=== PATIENT | female | born 1945 | race Caucasian/White ===

== ENCOUNTER 2018-05-01 14:53 | Inpatient (IN) | payer MEDICARE, BC, OTHER ==
[~2018-05-01] VITALS: Ht 162.6 cm; Wt 101.2 kg
--- NOTE | 2018-05-01 16:32 | NUR ---
Pt arrived via transport service in . O2 @ 2L/NC as per home rate. Pt states her can bringer her walker in. Has dry cough "from breathing treatments." Verified DNR status. Pt gets her meds thru [facility] or [facility] in .
--- NOTE | 2018-05-01 17:29 | NUR ---
Provided snack of PB and myrna.
[2018-05-01] MEDS ORDERED: IPRATROPIUM BROM3 M1 IH (17:53)
[2018-05-01] MEDS ORDERED: LEVEMIR FLEX100 U/ML SQ ×2 (17:54)
[2018-05-01] MEDS ORDERED: MELATONIN5 M1 PO (17:55)
[2018-05-01] MEDS ORDERED: ROXICODONE 55 MG/TAB PO (17:56)
[2018-05-01] MEDS ORDERED: SENOKOT S 50 MG1 TAB PO (18:01)
[2018-05-01] MEDS ORDERED: LIPITOR 40MG TA40 MG PO (18:02)
[2018-05-01] MEDS ORDERED: ASPIRIN E.C. 8181 MG PO (18:02)
[2018-05-01] MEDS ORDERED: PROAIR HFA0.09 MG/AC IH (18:02)
[2018-05-01] MEDS ORDERED: CARDIZEM CD 18180 MG PO (18:03)
[2018-05-01] MEDS ORDERED: OS-CAL 500 + D1 TAB PO (18:03)
[2018-05-01] MEDS ORDERED: COREG12.5 MG PO (18:03)
[2018-05-01] MEDS ORDERED: ZYRTEC5 MG PO (18:04)
[2018-05-01] MEDS ORDERED: CELEXA 20MG20 MG/TAB PO (18:04)
[2018-05-01] MEDS ORDERED: SYNTHROID0.05 MG/TA PO (18:05)
[2018-05-01] MEDS ORDERED: TRICOR 48MG48 MG PO (18:05)
[2018-05-01] MEDS ORDERED: SINGULAIR 110 MG/TAB PO (18:05)
[2018-05-01] MEDS ORDERED: PRILOSEC 20MG20 MG PO (18:06)
[2018-05-01] MEDS ORDERED: NOVOLOG FLEX100 U/ML SQ (18:06)
[2018-05-01] MEDS ORDERED: MIRAPEX 0.0.125 MG/T PO (18:07)
[2018-05-01] MEDS ORDERED: THEO-24 30300 MG/CAP PO (18:15)
[2018-05-01] MEDS ORDERED: DESYREL 50MG50 MG PO (18:15)
[2018-05-01 18:32] VITALS: BP 119/46; PULSE 92; TEMP 97.6
--- NOTE | 2018-05-01 20:55 | NUR ---
Bruised right buttock. TLSO collar/brace in place, pt to bed with alarm on, call light and bed control remote in reach. Report to Marleen
--- NOTE | 2018-05-01 21:00 | NUR ---
Patient resting in recliner. Given tylenol for pain. Assessment completed, evening medicaitons administered.
--- NOTE | 2018-05-01 22:30 | NUR ---
Patient ambulated to restroom with 1 assist and walker. Now returning to go to bed. Now resting in bed.
--- NOTE | 2018-05-02 02:38 | NUR ---
Patient requesting help to restroom. Ambulated with one assist and walker. Returned to bed. Asking for tylenol for some neck pain. given. No further needs at this time.
[2018-05-02 04:28] VITALS: BP 166/87; PULSE 71; TEMP 97.6
--- NOTE | 2018-05-02 10:45 | NUR ---
Initial visit; Patient thanked Yam Curer for looking in on her and offering God's blessings and to keep her in Yam Curer's prayers.
--- NOTE | 2018-05-02 12:24 | NUR ---
Patient resting in recliner at this time eating her lunch. Patient was seen by Dr. Jerome this afternoon see new med orders. Decreased Scheduled insulins. Blood sugar this afternoon was low, patient given milk, genesis crackers and [place] juice with good effect. Current blood sugar is in the 80's. Will continue to monitor.
--- NOTE | 2018-05-02 12:58 | NUR ---
SIDNEY met with the patient to complete initial intake. The patient lives in [place] with her , Jessee. She reports independence with ADLs prior to IPR and has a walker and canes. The patient's PCP is Dr. Quiles and she receives her medications on [place] or at the [facility] in [place]. She reports no difficulties obtaining her meds. The patient does not have advanced directives, but she was interested in obtaining the form for DPOA-HC. SIDNEY provided. SW to continue to follow to ensure a safe discharge.
--- NOTE | 2018-05-02 13:45 | NUR ---
Patient has bilateral bruising to forehead, eyes, right cheek, bilateral knees, and bilateral arms from prior fall. Patient currently wearing her TOPOLOGY TEACHER at all times per orders from Neurosurgery at [facility]. Patient reporting pain 5-7/10 this morning and given prn pain meds with some effect. Will continue to monitor. She is on 2 L oxygen at all times and reports that she is on that at home as well.
[2018-05-02 18:28] VITALS: BP 192/107; PULSE 81; TEMP 97.4
--- NOTE | 2018-05-02 19:00 | NUR ---
Patient on 8 lb weight restricions to bilateral arms. She was taken off the mechanical soft diet per ST today and tolerating diet well. Attended all therapies today. Reported off to night nurse.
[2018-05-02 20:30] VITALS: BP 107/77; PULSE 93
--- NOTE | 2018-05-03 01:08 | NUR ---
THE PT WAS UP TO THE BR FOR A MED SF BROWN BM, DID OWN HYGIENE, CGA TO THE BED, DOES WELL GETTING OWN LEGS UP INTO THE BED, USES HER BRACING AT ALL TIMES, C\O THE ROOM BEING TOO WARM, THEN TOO COOL, TEMP ADJUSTED. B\P WAS ELEVATED EARLIER BUT THEN WAS 104/77 AT RECHECK. TAKEN IN RIGHT LEG, POSSIBLY ELEVATED EARLIER WHEN SHE HAD JUST BEEN UP AND IN PAIN. WILL MONITOR. SHE HAD AN ACCUCHECK OF 103, TOOK AN HS SNACK. CALLS NEEDED. C\O HER CHIN PAD BEING SCRATCHY, SKIN TENDER. THIS NURSE DOESN'T HAVE MOHAIR OR LAMBS WOOL TO REPLACE IT. WILL PASS THIS ON TO THERAPIST TOMORROW FOR A SOLUTION. APPEARS TO GET ADEQUATE SLEEP.
[2018-05-03 06:30] VITALS: BP 158/65; PULSE 83; TEMP 97.7
--- NOTE | 2018-05-03 08:30 | NUR ---
PT NOT IN ROOM.
--- NOTE | 2018-05-03 11:30 | NUR ---
BS TAKEN AND FOUND TO BE 58. SNACK OF MILK AND YOLANDA CRACKERS GIVEN. LUNCH TRAY GIVEN BY KITCHEN STAFF. WILL RECHECK BS AT 1400.
--- NOTE | 2018-05-03 12:44 | NUR ---
PT HAD AN EPISODE OF GERD. UP TO BR
--- NOTE | 2018-05-03 12:48 | NUR ---
PT DID NOT EAT ALL HER LUNCH. SHE ATE ABOUT 20%. THEN STATES SHE WILL NOT EAT ANYMORE.
--- NOTE | 2018-05-03 12:55 | NUR ---
COUGHING UP GREENISH/BROWNISH PHLEM, TIWCE TODAY.
--- NOTE | 2018-05-03 13:11 | NUR ---
TL PICC LINE FLUSHED WITH 10 CC NS. WHITE LINE IS SLUGGISH AND NO BLOOD RETURN. WHITE AND PURPLE FLUSHE BETTER AND HAVE GOOD BLOOD RETURN.
--- NOTE | 2018-05-03 15:10 | NUR ---
pt requested tylenol 650 mg for headache/given. bs recheck at 1400 was 168, no insulin given.
[2018-05-03 16:00] VITALS: BP 147/72; PULSE 84; TEMP 97.8
--- NOTE | 2018-05-03 18:18 | NUR ---
PT REPORTS THAT SHE STILL HAS THE HEADACHE. GIVEN EDWIN 5 MG FOR THE HEADACHE. VSS. NO LOC, NO CHANGE IN MENTATION, PUPILS ARE EQUAL AND RECTIVE TO LIGHT. HAS HAD A STRONG COUGH MOST OF THE DAY. RIGHT NOW THE COUGH IS BETTER AND COMES LESS OFTEN.
--- NOTE | 2018-05-04 01:47 | NUR ---
THE PT WAS BEDRESTING WITH TV ON THE SHIFT BEGAN, SHE CALLED FOR ASSISTANCE TO GO TO THE BR AND VOID, THEN WANTED TO SIT UP IN THE RECLINER FOR A WHILE VERBALIZED OF NAGGING HEAD AND SHOULDERS ACHE, NOT DUE FOR MEDS, ICE PACK IN USE. SHE STATED THAT SHE FELT PUSHED TOO HARD TODAY AND THAT SHE VERBALIZED THAT IT WAS TOO MUCH FOR HER. EMOTIONAL SUPPORT GIVEN. SHE CALLED FOR BATHROOM AND TO BED CALLED FOR PAIN MEDS, GIVEN, PAIN IS AT AN 8\10. SHE SETTLED FOR A WHILE, RESTED WITH EYES CLOSED, RESP EVEN. PT IS UP NOW, IN THE BR WITH DONA OCAMPO TO SUPERVISE. CUES TO NOT BOYLE, SAFETY.
[2018-05-04 03:45] VITALS: BP 147/65; PULSE 75; TEMP 98.1
--- NOTE | 2018-05-04 06:32 | NUR ---
THE PT WAS ASSISTED TO THE BR TO VOID, REQUESTED TO THE RECLINER, TOOK HER MEDS, HEPARIN SQ TO ABD LOTS OF ECCYMOSIS.
--- NOTE | 2018-05-04 06:35 | NUR ---
THE PT STATED THAT THE HER MEDS FINALLY COUGHT UP WITH HER AND HER HEADACHE IS RELIEVED. THAT WAS AT ABOUT 0430.
--- NOTE | 2018-05-04 10:00 | NUR ---
Patient resting in recliner at this time. Call light in reach, bed alarm on. Pain increased to 5/10 at this time given prn pain meds. Will continue to monitor.
--- NOTE | 2018-05-04 11:00 | NUR ---
Patient was given a bed bath today and her bruises are continuing to heal. Applied lotion to her body and she was given fresh clothes. She had a shampoo cap applied and hair scrubbed, combed and blown dry. Patient tolerated well. She has multiple bruises to her stomach from the Heprin injections receiving TID. Will continue to monitor.
[2018-05-04 17:06] VITALS: BP 140/56; PULSE 86; TEMP 97.3
--- NOTE | 2018-05-04 18:58 | NUR ---
Patient currently resting in recliner, call light in reach and chair alarm on. Pain 5/10 at this time was given prn pain med. Will continue to monitor. Gave report to
--- NOTE | 2018-05-05 01:34 | NUR ---
THE PT WAS SITTING UP IN HER RECLINER THE SHIFT BEGAN, WATCHES TV AND PLAYS SOLITAIRE ON HER TABLET. SHE CALLED FOR ASISSTANCE TO GO AND SIT ON HER BED TO USE HER COMPUTER, SHE IS UP WITH SBA. STEADY GAIT, GOOD ATTENTION TO SAFETY AND SURROUNDINGS. VERBALIZED OF THE DAYS EVENTS. WHEN READY FOR HS, CALLED FOR ASSISTANCE TO THE BR AND BACK TO BED, POSITIONED FOR COMFORT. TOOK TYLENOL WITH ROXICODONE. HAD AN ACCUCHECK OF 136 FROM EARLIER, DIDN'T WANT A NEW ONE DONE. SHE REFUSED HER SCD'S STATING THAT THEY MAKE HER TOO HOT, TEACHING THAT SHE SHOULD DO ANKLE PUMPS EVERYTIME SHE WAKES IF SHE ISN'T GOING TO WEAR THEM.
--- NOTE | 2018-05-05 04:28 | NUR ---
THE PT IS BEDRESTING WITH EYES CLOSED, RESP EVEN. APPEARS TO GET ADEQUATE SLEEP.
[2018-05-05 05:11] VITALS: BP 157/75; PULSE 100; TEMP 97.8
--- NOTE | 2018-05-05 10:05 | NUR ---
Report from SONY Hansen. Pt has TLSO cervical brace and glasses in place, O2@2L/NC, c/o sore chest/midsternal from coughing all night. PRN pain meds given, notified AIV services of PICC. Hot tea given for coughing, applied tia wrap around. Pt amb w/ FWW, SBA, steady.
--- NOTE | 2018-05-05 11:30 | NUR ---
Patient admitted with PICC to inpatient rehabilitation. triple-lumen, bio flow PICC present right upper arm. with sterile technique right upper arm PICC dressing change done with insertion site cleansed with ChloraPrep 1, chlorhexidine impregnated disc applied, skin prep, StatLock, and Tegaderm applied. No signs or symptoms of IV complications noted. No concerns voiced. patient reports PICC was placed at [facility] in [facility].wrapped with Jason to protect catheter.
[2018-05-05 17:28] VITALS: BP 161/82; PULSE 73; TEMP 97.4
--- NOTE | 2018-05-05 21:26 | NUR ---
Pt mike mod I w/ FWW for bathroom privileges. Report to SONY Hansen. Gracie with tylenol given for pain
--- NOTE | 2018-05-06 04:01 | NUR ---
THE PT WAS UP IN HER RECLINER WITH TV ON THE SHIFT BEGAN. ENJOYS HER TABLET.CALLED FOR ASSISTANCE TO BEDAS SHE ONLY HAS BRP. SITS UP ON THE RIGHT SIDE OF THE BED, WORKS ON HER COMPUTER. HER HS ACCUCHECK WAS 161. HER S\\S COVERAGE WAS CHANGED TODAY TO LOW S\\S, NO COVERAGE REQUIRED. SHE REFUSES HER SCD'S, "TOO HOT", BUT SHE STATED HTAT SHE DOES HER ANKLE PUMPS WHEN SHE WAKES. RATED HER PAIN FROM 5-7 GIVEN MARK AND TYLENOL AT 2246 WITH GOOD EFFECT. APPEARS TO GET ADEQUATE SLEEP. UP TO THE BR WITH BRP, WITH HER WALKER AND HER TLSO ON AT ALL TIMES, NO PROBLEMS, STEADY GAIT, GOOD ATTENTION TO SAFETY AND SURROUNDINGS.
[2018-05-06 04:18] VITALS: BP 151/67; PULSE 87; TEMP 97.5
--- NOTE | 2018-05-06 07:31 | NUR ---
Patient resting in bed at this time, call light in reach and independent in her room. Patient reporting that she is not hungry after taking all her pills so refused the rest of her breakfast. She said that she has other foods that she can snack on this morning. Will continue to monitor.
--- NOTE | 2018-05-06 08:39 | NUR ---
Jessika was contacted this morning by SONY Hansen about PICC line difficulties. Red port is sluggish, purple port working well and white port unable to get blood return and is very difficult to flush. Jessika just met with this nurse and was updated on the above. She will be seeing patient later today. Will continue to monitor.
--- NOTE | 2018-05-06 08:40 | NUR ---
PICC intact right upper arm with sterile dressing change done with insertion site had been kinked at site. insertion site cleansed with chloraprep x 1, chlorhexidine impregnated disk applied. skin prep, stat lock, and tegaderm applied. ports flushed with 10ml normal saline with good blood return noted. no signs or symptoms of IV complications noted. no concerns voiced.
--- NOTE | 2018-05-06 10:58 | NUR ---
Patient reports not feeling well. Blood sugar taken was 177, patient requested a snack - given milk and genesis crackers. She is still currently working with therapy downstairs at this time. Will continue to monitor.
[2018-05-06 17:46] VITALS: BP 162/100; PULSE 97; TEMP 98.6
--- NOTE | 2018-05-06 18:30 | NUR ---
Patient was seen by Jessika and today and one of the ports was pinched off. She corrected this and now all three ports are working properly. Patient was wanting to know if she should have some labs drawn to check on her values and wanted to know if she could have physician observe her abdomen due to TID heprin injections. This will be communicated to Dr. Reyes tomorrow. Patient reported coughing a lot today and this causing her some chest discomfort. Given prn pain meds with some effect. Gave report to oncoming nurse.
--- NOTE | 2018-05-06 19:20 | NUR ---
Entered room during hand off with day shift nurse. Pt distressed. States she is "hot". Asks to make sure her oxygen is on. Respirations labored. Pt is tachycardiac and c/o intermittent nausea and pain 8/10 when coughing d/t brace crushign into abdomen. Spo2 93% on O2 @ 2L. Blood glucose is elevated. Dayshift nurse held insulin d/t pt hx of low blood sugars. Insulin will be administered.
--- NOTE | 2018-05-06 20:15 | NUR ---
Patient sitting at side of bed playing a computer game. Reports pain, nausea and SOB have resolved. No distress noted.
--- NOTE | 2018-05-07 04:05 | NUR ---
Pt up to bathroom. No needs noted. Pt denies pain.
[2018-05-07 06:15] VITALS: BP 138/76; PULSE 95; TEMP 97.2
[2018-05-07 16:19] VITALS: BP 154/62; PULSE 76; TEMP 97.4
--- NOTE | 2018-05-08 06:11 | NUR ---
Pt slept well during the night, no complaints, VS have remained stable.
[2018-05-08 06:41] LABS: MEAN CELL VOLUME 91 fl (80.0-100.0); MEAN CORPUSCULAR HGB CONC 31 g/dl (33.0-37.0); MEAN PLATELET VOLUME 9.4 fl (7.4-10.4); PLATELET COUNT 471 K/mm3 (130-400); RED BLOOD COUNT 3.43 M/mm3 (4.10-5.30); REDCELL DISTRIBUTION WIDTH-CV 17.2 % (11.5-14.5)
[2018-05-08 06:45] LABS: HEMATOCRIT 31.2 % (37.0-47.0); HEMOGLOBIN 9.8 g/dl (12.5-16.0); MEAN CORPUSCULAR HEMOGLOBIN 29 pg (27.0-31.0)
[2018-05-08 06:48] LABS: CALCIUM 8.7 mg/dL (8.4-10.2); CREATININE, serum 1.08 mg/dL (0.52-1.25)
[2018-05-08 07:12] LABS: ANISOCYTOSIS 1+; BAND 19 % (0-10); BASOPHIL 1 % (0-2); EOSINOPHIL 2 % (0-4); LYMPHOCYTE 21 % (20.0-51.0); NEUTROPHILS 50 % (42.0-75.2); PLATELET ESTIMATE INCREASED (NORMAL)
[2018-05-08 07:44] VITALS: BP 174/95; PULSE 100; TEMP 97.5
--- NOTE | 2018-05-08 11:26 | NUR ---
Report from SONY Berry. Pt mike Mod I in rm w/ FWW for BR privilages, TLSO cervical brace in place, O2/NC, gripper socks.
--- NOTE | 2018-05-08 11:33 | NUR ---
Faxed prescription for Doyle Collar part to [facility], received "OK" fax receipt. Copy to chart.
[2018-05-08 15:39] VITALS: BP 145/68; PULSE 81; TEMP 97.9
--- NOTE | 2018-05-08 16:06 | NUR ---
SIDNEY met with the patient and patient's to discuss IPR Team Conference Note and to review the teams recommendation of home health with PT/OT for a tentative discharge date for 05/13. The patient was in agreeance to this plan. SIDNEY to provide the patient with a list of home health agencies that serve [place]. The patient was also interested in agencies that provide housekeeping and a chair lift. SW to provide that information. SIDNEY then discussed OT's recommendation of the patient's coming in on Saturday, 05/12 for some education and training. The patient's reports that he is in agreeance to this plan and can be up to the hospital at 1300. SIDNEY to inform IPR Director and continue to follow.
--- NOTE | 2018-05-08 17:38 | NUR ---
Pt to chair for supper, visiting. TLSO brace in place, [facility] brought new c-collar pads, will need to use precautions with pt in bed to remove brace before changing pads. Old pads to be hand washed and dried and saved for future use.
--- NOTE | 2018-05-08 22:00 | NUR ---
PT SITTING UP IN RECLINER PLAYING GAME ON TABLET. ASPEN COLLAR W/ TSLO INTACT. SEE MAR FOR PAIN MEDS GIVEN. FULL MOVEMENT TO BUE/BLE. PLACED ERIC PADDING ON ASPEN COLLAR. WASHED OUT OLD PADS AND PLACED IN BR TO DRY. WASHED NECK AND FACE. PT RELATES COUGH USUALLY STARTS AFTER GETTING INTO BED. ROBITUSSIN GIVEN. MOD I TO BR AND BACK. ENC PT TO CALL NURSE WHEN GETTING UP QT NIGHT D/T NARCOTIC MEDS GIVEN. PT AGREED. CALL LIGHT IN REACH.
[2018-05-09 04:37] VITALS: BP 168/73; PULSE 95; TEMP 97.5
--- NOTE | 2018-05-09 09:00 | NUR ---
PICC intact right upper arm. Concern for dressing would not be intact by Saturday. With sterile technique right upper arm PICC dressing change done with insertion site cleansed with ChloraPrep 1, impregnated chlorhexidine disc applied, skin prep, StatLock, and Tegaderm applied. Tegaderm applied on top of dressing. Besides or symptoms of IV complications noted. No concerns voiced. Flushed all 3 ports with 10 mL normal saline with good blood return noted. 2 ports are sluggish. We will continue to monitor.
--- NOTE | 2018-05-09 11:07 | NUR ---
Report from SONY Salinas. Pt mike mod I w/ fww for BRP. TLSO brace and O2 in place. Obtained new NC per pt's request. Pt had gown under brace, attempted to don sweatshirt over this and asked for assistance after pt got arms in, helped get over head and pt had lots of pain, decided to take off sweatshirt as it was too tight, needed more assist to remove. Pt manages own O2 tubing. Took pills with thin liqs.
--- NOTE | 2018-05-09 14:25 | NUR ---
Pt made mod I in rm w/ fww
[2018-05-09 16:32] VITALS: BP 144/70; PULSE 88; TEMP 97.4
--- NOTE | 2018-05-09 17:55 | NUR ---
Pt to chair, visiting and voiced his concerns of pt going home, asked him to elaborate, and enc solutions. Denied further questions. Enc to write down other questions and bring Saturday with therapy training.
--- NOTE | 2018-05-09 19:01 | NUR ---
Notified Mayte, Mechanical Engineer at 1739 to request PICC line removal, aware. Later, Mayte asked when PICC was inserted (April 24, 2018) and length (48 cm) per report from [facility]. Reported to SONY Salinas that Mayte asked to be notified when pt is in bed for PICC removal.
--- NOTE | 2018-05-09 20:00 | NUR ---
PT PLACED IN SUPINE POSITION FOR RUE PICC LINE REMOVAL PER STERILE TECHNIQUE. SKIN VERY IRRITATED FROM ADHESIVE. PT TOLERATED WELL.
--- NOTE | 2018-05-09 20:00 | NUR ---
SEE NOTE RE PICC LINE REMOVAL. NO BLEEDING FROM SITE. DRSG CDI. C COLLAR WITH TSLO IN PLACE. PT MOD I IN ROOM W/WALKER. STEADY GAIT WITH SPINAL PRECAUTIONS FOLLOWED. DENIES NUMBNESS OR TINGLING IN EXTREMITIES. CALL LIGHT IN REACH.
[2018-05-10 04:30] VITALS: BP 135/54; PULSE 92; TEMP 98.5
--- NOTE | 2018-05-10 09:00 | NUR ---
PT IN BED AT PRESENT. REQUESTS ASSIST TO GET OUT OF BED TO VOID. SMALL AMOUNT OF ASSIST GIVEN, MORE INSTRUCTION TO TURN TO HER SIDE AND PULL HERSELF UP TO SITTING. AMBULATES TO BR AND VOIDS. PT EV TO CLEAN HERSELF. PT AMBULATES OUT OF BR TO CLOSET AND GETS HER CLOTHES READY FOR THE DAY. PT IS ABLE TO PUT HER UNDERWARE AND PANTS ON WITH SMALL AMOUNT OF DIFFICULTY WHICH SHE IS ABLE TO FIGURE OUT FOR HERSELF. COUGHING IS VERY PAINFUL FOR THE PT ESPECIALLY AT THE CHEST AREA. PT TAKES AM MEDS EASILY, REQUESTS PAIN MEDS. CALL LIGHT AND ALARMS IN USE.
--- NOTE | 2018-05-10 15:34 | NUR ---
HERE READING THE PAPER. PT UP AMBULATING IN ROOM. BRACE IN PLACE. STATES PAIN IS 5/10, GIVEN EDWIN AND TYLENOL FOR PAIN.
[2018-05-10 16:42] VITALS: BP 137/55; PULSE 93; TEMP 97.3
--- NOTE | 2018-05-10 21:00 | NUR ---
PT SITTING UP IN RECLINER. O2 2L N/C NO RESP DISTRESS. FACIAL BRUISING IMPROVING. C-COLLAR W/TSLO IN PLACE. PT HAS MANY COMPLAINTS RANGING FROM TO STAFF TO FOOD. ALLOWED PT TO VOICE FRUSTRSATION. READJUSTED C CLOOAR FOR MORE SUPPORT.
[2018-05-11 04:15] VITALS: BP 168/78; PULSE 102; TEMP 98.2
--- NOTE | 2018-05-11 09:14 | NUR ---
Adjusted foam cushions under waist straps to TLSO while pt layed flat in bed. [place] Mod I in RM w/ Walker and O2 per NC, glasses in place, gripper socks on.
[2018-05-11 18:18] VITALS: BP 178/85; PULSE 90; TEMP 97.8
--- NOTE | 2018-05-11 20:29 | NUR ---
No acute changes, pt took ac with tylenol for pain x2 this shift. Provided warm bath wipes, pt used independently; provided shower cap, assisted around brace. Pt asked for assist with changing hospital gown underneath brace in 's presence. Pt mike mod I in rm w/ fww. Report to SONY Hansen.
--- NOTE | 2018-05-12 01:41 | NUR ---
THE PT WAS SITTING UP IN HER RECLINER INITIAL ROUNDS WERE MADE, SHE IS MODIFIED INDEPENDENT IN HER ROOM WITH HER TLSO ON. SHE DID HER OWN HS CARES, WENT TO THE BR, ACCUCHECK WAS 156, SHE WENT TO BED, NAPPED FOR ABOUT AN HOUR THEN UP TO THE RECLINER AGAIN. SHE HAD AN HS SNACK EARLIER BUT REQUESTED ANOTHER ABOUT 1 AM, GIVEN. SHE RATED HER PAIN AT A 5\\10, TOOK MARK AND TYLENOL AND PAIN WAS DOWN TO A 3. SHE C\\O THE TLSO, READJUSTED IT SEVERAL TIMES. STATED, " I CAN'T WAIT UNTIL I DON'T NEED THIS ANYMORE. THE PT IS SCHEDULED FOR A FU CT ON THE . SHE REMAINS UP IN HER RECLINER PLAYING GAMES ON HER TABLET.
--- NOTE | 2018-05-12 04:40 | NUR ---
BEDRESTING WITH EYES CLOSED, RESP EVEN. WAS WAKEFUL EARLIER AND PLAYED GAMES ON HER TABLET UNTILL READY FOR BED, C\O BRACE RISING UP INTO HER NECK, BETTER WITH SMALL ADJUSTMENT AND HOB LOWERED.
[2018-05-12 06:20] VITALS: BP 174/112; PULSE 77; TEMP 97.4
[2018-05-12 06:46] LABS: BASO # 0.1 (0.0-0.2); EOS # 0.5 (0.0-0.7); EOS % 5.4 % (0-4.0); GRAN # 5.5 (1.4-6.5); GRAN % 59.3 % (42.2-75.2); HEMOGLOBIN 10.9 g/dl (12.5-16.0); LYMPH # 1.9 (1.2-3.4); LYMPH % 20.4 % (20.0-51.0); MEAN CELL VOLUME 92 fl (80.0-100.0); MEAN CORPUSCULAR HEMOGLOBIN 29 pg (27.0-31.0); MEAN CORPUSCULAR HGB CONC 31 g/dl (33.0-37.0); MEAN PLATELET VOLUME 9.6 fl (7.4-10.4); MONO # 1.2 (0.1-0.6); MONO % 12.7 % (1.7-9.3); PLATELET COUNT 418 K/mm3 (130-400); RED BLOOD COUNT 3.83 M/mm3 (4.10-5.30); REDCELL DISTRIBUTION WIDTH-CV 17.7 % (11.5-14.5)
[2018-05-12 06:52] LABS: HEMATOCRIT 35.4 % (37.0-47.0)
[2018-05-12 07:08] LABS: CALCIUM 8.8 mg/dL (8.4-10.2); CREATININE, serum 1.12 mg/dL (0.52-1.25)
--- NOTE | 2018-05-12 07:10 | NUR ---
Report received from SONY Hansen. Pt sitting on bench resting, denies needs, will continue to monitor.
--- NOTE | 2018-05-12 10:48 | NUR ---
Assessment charted. PRN pain meds given earlier and pain is now at 3/10, pt tolerating well, sitting on bench playing computer soleVestment games. BLE +2 pitting edema from dependent position. Pt verbalized that TLSO brace has been adjusted by PT and is now much more comfortable. PICC site dressed with mepilex on R arm from skin tear. See assessment for all other skin issues. Will continue to monitor.
--- NOTE | 2018-05-12 11:55 | NUR ---
First visit from the knuckle bender. No needs right now.
[2018-05-12 15:09] VITALS: BP 130/64; PULSE 88; TEMP 97.5
--- NOTE | 2018-05-12 16:08 | NUR ---
SIDNEY met with patient to present IM and verbally discussed the contents. Patient was agreeable and signed the form. She reports she has all her medical equipment that is needed except a stair lift. SIDNEY informed her medicaid wont pay for that but she may be able to get assistance with the [facility]. SIDNEY provided list of home health agencies and she is going to research tonight and give her choice in the am. SIDNEY to follow.
--- NOTE | 2018-05-12 18:06 | NUR ---
Pt doing well. PRN pain meds provided over shift per request from patient. Pt up ambulating in room as needed, MOD I. Excoriation noted in pannus area todya, will pass onto next shift to address. Pt up to bench, chair, bed as needed. Denies current pain, will give bedside shift report to nightshift nurse who will resume care.
--- NOTE | 2018-05-13 01:49 | NUR ---
THE PT IS UP [facility], SITS UP IN THE RECLINER, PLAYS HER GAMES UNTIL ABOUT 2300. ACCUCHECK WAS 230, SCHEDULED AND S\S INSULIN GIVEN. SHE STATED THAT SHE IS TIRED OF PB &CRACKERS. SHE HAD A CHOCOLATE ICE CREAM FOR HS SNACK. SHE TOOK PAIN MEDS AT ABOUT 2200. SHE IS UP IN HER ROOM WITH GOOD ATTENTION TO SAFETY AND SURROUNDINGS.
[2018-05-13 06:37] VITALS: BP 165/87; PULSE 95; TEMP 98.1
--- NOTE | 2018-05-13 09:34 | NUR ---
Patient resting in bed at this time, call light in reach and independent in her room with a walker. Patient has a Cervical TLSO on at all times. PICC was removed on 05/09 and has a small skin tear wear the tegaderm/mepilex was removed. Mepilex is currently in place CDI. Patient reports that she was given new collar pads for her TLSO. She has requested staff to assist with adustment of brace this morning due to discomfort. Will continue to monitor. Patient reported that her stomach was not feeling well this morning. So only ate a small amount of her breakfast. She did eat peanut butter and crackers following that though. She takes her pills whole with water with no difficulties.
--- NOTE | 2018-05-13 10:02 | NUR ---
Call to SIDNEY Ren regarding patient wanting to use [facility]. She voiced understanding.
--- NOTE | 2018-05-13 10:05 | NUR ---
Patient chose [facility]. SIDNEY faxed referral and called to inform them. Will send DC once completed.
[2018-05-13] MEDS ORDERED: TYLENOL 325MG325 MG PO (11:30)
[2018-05-13] MEDS ORDERED: MUCINEX 60600 MG/TA1 PO (11:31)
[2018-05-13] MEDS ORDERED: ROBITUSSIN DM 105 ML PO (11:31)
[2018-05-13] MEDS ORDERED: FLONASE NASAL S16 GM NS (11:32)
[2018-05-13] MEDS ORDERED: ROXICODONE 55 MG/TAB PO (11:39)
--- NOTE | 2018-05-13 13:24 | NUR ---
Discharge orders faxed to [facility].
--- NOTE | 2018-05-13 13:37 | NUR ---
Upon discharge patient was wanting to know if she could take any lasix as she use to be on it prior to this fall. It had been dc'd when she was transferred from [place] to [facility]. This nurse left a message for Dr. Jerome to return her call regarding this. Awaiting a reply.
[2018-05-13] MEDS ORDERED: LASIX 20MG TABL20 MG PO (13:55)
--- NOTE | 2018-05-13 14:00 | NUR ---
See new orders to start Lasix 20 mg Q day [address] Jerome. Rx was printed for patient upon discharge.
--- NOTE | 2018-05-13 14:15 | NUR ---
Patient Health Summary, Discharge Summary, and Home Meds printed and reviewed with patient and spouse. Stressed importance of follow up appointments. Reviewed medications, provided printed prescription of Lasix and Roxicodone. Belongings gathered by HAILY/Trevor including cane, glasses, TLSO brace, Cell phone, tablet, chargers, suitcase and clothes. Patient transported via wheelchair by Nelli and seatbelted for ride home with . Patient and denied questions.
--- NOTE | 2018-05-13 15:27 | NUR ---
Have a call out to Patient and to Anne to clarify about the f/u MRI for patient upon discharge. Awaiting a return call.
--- NOTE | 2018-05-13 15:56 | NUR ---
Anne returned my call - she was not updated on the MRI/CT scheduling. Awaiting a return call from patient to find out any details.
--- NOTE | 2018-05-15 11:05 | NUR ---
Discharge FIM scores for 05/12/18 were reviewed by the team. Team judged the nursing score (6) for eating & grooming to be scored incorrectly as documentation for eating was only for ADA & grooming read "independent" & feels scores should be a 7 = independent. Team also discussed social interaction & due to some out bursts towards during family education/training it is felt score should be a 5 as she needed some verbal cues.--Simran Fernandez, PD
== END 2018-05-13 14:15 | disposition home health service (06) | DRG 950 ==
PROVIDERS: Family Medicine; Hospitalist; ADMIT Internal Medicine
DX: S06.5X9D Traumatic subdural hemorrhage with loss of consciousness of unspecified duration, subsequent encounter (principal); Z66 Do not resuscitate; W10.8XXD Fall (on) (from) other stairs and steps, subsequent encounter; S22.021 Stable burst fracture of second thoracic vertebra; S12.100D Unspecified displaced fracture of second cervical vertebra, subsequent encounter for fracture with routine healing; S12.200D Unspecified displaced fracture of third cervical vertebra, subsequent encounter for fracture with routine healing; I25.10 Atherosclerotic heart disease of native coronary artery without angina pectoris; I10 Essential (primary) hypertension; I48.0 Paroxysmal atrial fibrillation; E78.5 Hyperlipidemia, unspecified; E11.9 Type 2 diabetes mellitus without complications; J44.9 Chronic obstructive pulmonary disease, unspecified; E66.01 Morbid (severe) obesity due to excess calories; Z79.4 Long term (current) use of insulin; J01.90 Acute sinusitis, unspecified; Z68.37 Body mass index [BMI] 37.0-37.9, adult; F32.9 Major depressive disorder, single episode, unspecified; Z86.73 Personal history of transient ischemic attack (TIA), and cerebral infarction without residual deficits; Z87.891 Personal history of nicotine dependence; Z23 Encounter for immunization
CPT/HCPCS: 99222-AI; 99231-AI; 99232-AI; 99233-AI; 99239; J1644; J1650; J1815

== ENCOUNTER 2018-05-19 16:31 | Inpatient (IN) | payer MEDICARE, BC, OTHER ==
[2018-05-19] VITALS (194 sets, daily range): BP systolic 124; BP diastolic 78; PULSE 84; TEMP 97.4; O2SAT 81–100
[~2018-05-19] VITALS: Ht 162.6 cm; Wt 95.1 kg
[~2018-05-19 16:31] MED LIST: ASPIRIN E.C. 8181 MG PO; CARDIZEM CD 18180 MG PO; CELEXA 20MG20 MG/TAB PO; COREG12.5 MG PO; DESYREL 50MG50 MG PO; FLONASE NASAL S16 GM NS; IPRATROPIUM BROM3 M1 IH; LASIX 20MG TABL20 MG PO; LEVEMIR FLEX100 U/ML SQ; LIPITOR 40MG TA40 MG PO; MELATONIN5 M1 PO; MIRAPEX 0.0.125 MG/T PO; MUCINEX 60600 MG/TA1 PO; NOVOLOG FLEX100 U/ML SQ; OS-CAL 500 + D1 TAB PO; PRILOSEC 20MG20 MG PO; PROAIR HFA0.09 MG/AC IH; ROBITUSSIN DM 105 ML PO; ROXICODONE 55 MG/TAB PO; SENOKOT S 50 MG1 TAB PO; SINGULAIR 110 MG/TAB PO; SYNTHROID0.05 MG/TA PO; THEO-24 30300 MG/CAP PO; TRICOR 48MG48 MG PO; TYLENOL 325MG325 MG PO; ZYRTEC5 MG PO
--- NOTE | 2018-05-19 18:00 | NUR ---
Pt transfered from EMS cart to ICU bed. Pt wearing thoracic and cervical brace under gown. Gown placed under brace. at bedside. Pt AAOx3 with HR=80's in Atrial Flutter, all other VSS on baseline O2 of 2L per Nasal canula. Denies chest pain at this time. IV heparin and cardizem infusing upon arrival. Heparin paused for HepXA lab draw. Premixed cardizem gtt and tubing changed to cardizem pulled from ICU [facility] as the cardizem bag from [facility] was not labeled with concentration of drug.
--- NOTE | 2018-05-19 19:45 | NUR ---
REPORT RECEIVED FROM SONY HA.
[2018-05-19 19:48] LABS: PARTIAL THROMBOPLASTIN TIME 85.5 SECONDS (26.0-37.0)
--- NOTE | 2018-05-19 19:54 | NUR ---
Bedside report given to SONY Morocho. Mariah gtt dose and current heparin pause reviewed together. Pt sitting up on side of bed eating supper. No complaints at this time. Call light within reach.
--- NOTE | 2018-05-19 20:12 | NUR ---
CALLED NADER GARCIA TO CLARIFY ORDER FOR PT'S HEPARIN. PT ON LOW DOSE HEPARIN PROTOCOL.
--- NOTE | 2018-05-19 20:50 | NUR ---
PT'S HEP XA AT 0.84, THIS RN CALLED HOSPITALIST NADER GARCIA TO CLARIFY OF WHAT RATE WILL WE START PT ON, ORDERS RECEIVED TO RE-DRAW HEP XA AT 2200. HEPARIN DRIP CURRENTLY OFF AT THIS TIME.
--- NOTE | 2018-05-19 21:50 | NUR ---
RECEIVED A CALL FROM NADER GARCIA. PT'S HEPARIN DISCONTINUED PT HAD PREVIOUS SUBDURAL HEMATOMA A MONTH AGO. HEP XA AT 2200 CANCELLED.
[2018-05-19 23:27] LABS: ALBUMIN 4.1 gm/dL (3.5-5.0); BILIRUBIN,TOTAL 0.8 mg/dL (0.0-1.0); CALCIUM 9.5 mg/dL (8.4-10.2); CREATININE, serum 1.03 mg/dL (0.52-1.25); MAGNESIUM 1.2 mg/dL (1.6-2.3); POTASSIUM 3.3 mmol/L (3.4-5.0); TOTAL PROTEIN 7.2 gm/dL (6.4-8.2)
--- NOTE | 2018-05-19 23:27 | NUR ---
PT CONVERTED TO SINUS RHYTHM AT 0950. NADER GARCIA NOTIFIED AN HOUR LATER AND ORDER TO KEEP PT AT CURRENT DOSE OF CRADIZEM 10 MG/HR AND CONTINUE TO MONITOR.
[2018-05-19 23:41] LABS: TROPONIN-I 0.094 ng/mL (0.000-0.035)
--- NOTE | 2018-05-19 23:42 | NUR ---
RECEIVED A CRITICAL OF TROPONIN 0.094 FROM LAB. NADER GARCIA NOTIFIED, NO NEW ORDERS RECEIVED AT THIS TIME.
[2018-05-20] VITALS (405 sets, daily range): BP systolic 125–182; BP diastolic 57–79; PULSE 70–94; TEMP 97.6–98.6; O2SAT 79–100
--- NOTE | 2018-05-20 03:00 | NUR ---
CRITICAL LAB OF TROPONIN OF 0.083, TRENDING DOWN. NO NOTIFICATION NEEDED.
[2018-05-20 06:13] LABS: CREATININE, serum 1.02 mg/dL (0.52-1.25); POTASSIUM 3.2 mmol/L (3.4-5.0)
[2018-05-20 06:14] LABS: BASO # 0.1 (0.0-0.2); BASO % 0.7 % (0.0-2.0); EOS # 0.4 (0.0-0.7); EOS % 4.9 % (0-4.0); GRAN # 4.9 (1.4-6.5); GRAN % 57.9 % (42.2-75.2); HEMOGLOBIN 13.6 g/dl (12.5-16.0); LYMPH % 23.7 % (20.0-51.0); MEAN CELL VOLUME 89 fl (80.0-100.0); MEAN CORPUSCULAR HEMOGLOBIN 29 pg (27.0-31.0); MEAN CORPUSCULAR HGB CONC 32 g/dl (33.0-37.0); MEAN PLATELET VOLUME 9.6 fl (7.4-10.4); MONO % 12.2 % (1.7-9.3); PLATELET COUNT 254 K/mm3 (130-400); RED BLOOD COUNT 4.74 M/mm3 (4.10-5.30); REDCELL DISTRIBUTION WIDTH-CV 16.5 % (11.5-14.5)
--- NOTE | 2018-05-20 07:25 | NUR ---
Bedside report recieved from Bailee CARDOZA
--- NOTE | 2018-05-20 07:25 | NUR ---
REPORT GIVEN TO EMERALD CARDOZA AND KAYLEE CARDOZA.
--- NOTE | 2018-05-20 10:31 | NUR ---
SW met with patient after clinical rounds. Patient lives independently at home with her . Patient's PCP is Dr Quiles and she obtains prescriptions from [facility]. Patient does not use any home health services but she does wear a brace and uses O2 (supplies by [employer]). Patient reports she has a DPOA for healthcare decisions and her PCP or [facility] should have a copy of those forms. SW does not anticipate any needs upon discharge but matthew continue to follow. SIDNEY contacted Dr Quiles's office to obtain DPOA forms. Dr. Quiles's nurse reports they do not have copies of patient's DPOA and that if the hospital has records of patient's DPOA, then they would have copies as well.
--- NOTE | 2018-05-20 12:42 | NUR ---
Report called to Sun CARDOZA.
--- NOTE | 2018-05-20 13:15 | NUR ---
Pt arrives to medical unit rm [id number] from ICU via WC. Pt A&O x 3, C-collar in place. Pt reports pain has improved since taking the pain medication prior to transfer. IVF's infusing per orders through left forearm site without s/s of complications. No further needs reported. Call light in reach.
--- NOTE | 2018-05-20 17:15 | NUR ---
Pt resting in bed, reports pain to head/neck starting to increase and requests pain medication. No further needs reported. Call light in reach.
[2018-05-21] VITALS (14 sets, daily range): BP systolic 103–209; BP diastolic 59–103; PULSE 74–102; TEMP 97.5–98.8
--- NOTE | 2018-05-21 04:44 | NUR ---
PT HAD UNEVENTFUL NOC. NO C/O CHEST PAIN. APPEARED TO HAVE SLEPT WELL. NO ISSUSE OR CONCERS VOICED
[2018-05-21 06:22] LABS: BASO % 0.5 % (0.0-2.0); EOS # 0.4 (0.0-0.7); EOS % 4.7 % (0-4.0); GRAN # 5.8 (1.4-6.5); GRAN % 67.3 % (42.2-75.2); HEMOGLOBIN 13.1 g/dl (12.5-16.0); LYMPH # 1.5 (1.2-3.4); LYMPH % 17.2 % (20.0-51.0); MEAN CELL VOLUME 91 fl (80.0-100.0); MEAN CORPUSCULAR HEMOGLOBIN 29 pg (27.0-31.0); MEAN CORPUSCULAR HGB CONC 32 g/dl (33.0-37.0); MEAN PLATELET VOLUME 9.8 fl (7.4-10.4); MONO # 0.8 (0.1-0.6); MONO % 9.7 % (1.7-9.3); PLATELET COUNT 260 K/mm3 (130-400); REDCELL DISTRIBUTION WIDTH-CV 16.1 % (11.5-14.5)
[2018-05-21 06:57] LABS: CALCIUM 8.8 mg/dL (8.4-10.2); MAGNESIUM 1.7 mg/dL (1.6-2.3); POTASSIUM 3.5 mmol/L (3.4-5.0)
--- NOTE | 2018-05-21 09:00 | NUR ---
Assessment complete. Pt laying in bed, A&O x 4 with C-collar brace in place. Breath sounds CTAB. BS active x 4. Pt reports pain is starting to increase slightly but denies need for pain medication at this time. IVF's infusing per orders through left forearm site without s/s of complications. POC reviewed with pt regarding testing. No further needs reported. Call light in reach.
--- NOTE | 2018-05-21 09:11 | NUR ---
Initial visit; Patient thanked Train Brake Operator for stopping and keeping her in her prayers.
--- NOTE | 2018-05-21 10:06 | NUR ---
Pt to [facility] for testing via .
--- NOTE | 2018-05-21 13:15 | NUR ---
Pt back to room from nuc med via WC, A&O x 4, reports head and neck pain 7 out of 10 on pain scale. BP still elevated, sched BP meds administered per orders from am meds. WBG assessed and pt ordering food. No further needs reported. Call light in reach.
[2018-05-22 00:59] VITALS: BP 152/73; PULSE 81; TEMP 97.5
--- NOTE | 2018-05-22 01:00 | NUR ---
PT HAD UNEVENTFUL NOC. NO C/O CHEST PAIN. APPEARS TO BE RESTING WELL. NO NOTED PAIN OR N/V/D THIS HS. VOICED CONERNS ABOUT HAVING A BUSY DAY AND WANTING TO SLEEP. NO OTHER ISSUES VOICED
[2018-05-22 04:51] VITALS: BP 158/60; PULSE 76; TEMP 98.3
[2018-05-22 07:12] LABS: BASO # 0.1 (0.0-0.2); BASO % 0.7 % (0.0-2.0); EOS # 0.4 (0.0-0.7); EOS % 4.4 % (0-4.0); GRAN # 5.8 (1.4-6.5); GRAN % 63.8 % (42.2-75.2); HEMATOCRIT 42.9 % (37.0-47.0); HEMOGLOBIN 13.3 g/dl (12.5-16.0); LYMPH # 1.7 (1.2-3.4); LYMPH % 18.8 % (20.0-51.0); MEAN CELL VOLUME 92 fl (80.0-100.0); MEAN CORPUSCULAR HEMOGLOBIN 29 pg (27.0-31.0); MEAN CORPUSCULAR HGB CONC 31 g/dl (33.0-37.0); MEAN PLATELET VOLUME 9.9 fl (7.4-10.4); MONO # 1.1 (0.1-0.6); MONO % 11.9 % (1.7-9.3); PLATELET COUNT 248 K/mm3 (130-400); RED BLOOD COUNT 4.67 M/mm3 (4.10-5.30); REDCELL DISTRIBUTION WIDTH-CV 16.3 % (11.5-14.5)
--- NOTE | 2018-05-22 07:17 | NUR ---
Pt slept during the night, no C/O pain, VS stable.
[2018-05-22 07:23] LABS: CALCIUM 9.2 mg/dL (8.4-10.2); CREATININE, serum 1.14 mg/dL (0.52-1.25); MAGNESIUM 1.6 mg/dL (1.6-2.3)
[2018-05-22 08:02] VITALS: BP 144/76; PULSE 73; TEMP 97.9
--- NOTE | 2018-05-22 08:09 | NUR ---
Pt is resting in bed. She is alert and oriented x4. She denies pain at this time. Saline lock to left FA is free of complications. She remains on 2L O2 per NC which is baseline. Back/neck brace in place. Pt is up as tolerated in room. She states she "just wants to rest." Denies any other needs. Will monitor.
[2018-05-22] MEDS ORDERED: BETAPACE 80MG80 MG PO (09:24)
[2018-05-22 12:00] VITALS: BP 144/70; PULSE 67; TEMP 98.5
--- NOTE | 2018-05-22 15:13 | NUR ---
[facility] health contacted SIDNEY to inform that the patient has their home health services. SIDNEY confirmed services with the patient and she reports she would like to resume them upon discharge. The patient is to discharge back home with her today, 05/22, with home health services for longterm/PT/OT through [facility]. SIDNEY and SIDNEY student presented and explained the IM form to the patient and patient's . The patient verbalized understanding, signed, and she was provided a copy. No additional needs at this time.
--- NOTE | 2018-05-22 16:09 | NUR ---
Pt was discharged home from hospital. All discharge paperwork and instructions were reviewed with pt and her , both expressed undestanding an had no questions. Saline lock removed, catheter tip intact. New Rx sent to pharm. Pt was escorted out of facility by staff.
== END 2018-05-22 16:12 | disposition home health service (06) | DRG 282 ==
LOC: ICU 16:31 → MEDICAL 05-20 13:19
PROVIDERS: Hospitalist; Nurse Practitioner; Physician Assistant; ADMIT Family Medicine
DX: I48.0 Paroxysmal atrial fibrillation (principal); I21.A1 Myocardial infarction type 2; I10 Essential (primary) hypertension; E78.5 Hyperlipidemia, unspecified; I25.10 Atherosclerotic heart disease of native coronary artery without angina pectoris; J44.9 Chronic obstructive pulmonary disease, unspecified; E11.9 Type 2 diabetes mellitus without complications; Z79.4 Long term (current) use of insulin; E03.9 Hypothyroidism, unspecified; E83.42 Hypomagnesemia; S12.130D Unspecified traumatic displaced spondylolisthesis of second cervical vertebra, subsequent encounter for fracture with routine healing; S12.200D Unspecified displaced fracture of third cervical vertebra, subsequent encounter for fracture with routine healing; W18.30XD Fall on same level, unspecified, subsequent encounter; Z87.891 Personal history of nicotine dependence
CPT/HCPCS: 99222-AI; 99232-AI; 99239; A9500; J0360; J1815; J2785; J3475; J7030

== ENCOUNTER 2018-08-05 09:04 | Outpatient (CLI) | payer MEDICARE, BC, OTHER ==
[~2018-08-05] VITALS: Ht 162.6 cm; Wt 91.7 kg
[~2018-08-05 09:04] MED LIST changes: +BETAPACE 80MG80 MG PO; +ZYRTEC ALLERGY10 MG PO; -ZYRTEC5 MG PO
[2018-08-05 09:48] VITALS: BP 137/59; PULSE 76; TEMP 98
[2018-08-05] MEDS ORDERED: TYLENOL 325MG325 MG PO (09:53)
[2018-08-05] MEDS ORDERED: FLONASEALLERGY NS (10:03)
[2018-08-05] MEDS ORDERED: LASIX 20MG TABL20 MG PO (10:04)
[2018-08-05] MEDS ORDERED: SINGULAIR 110 MG/TAB PO (10:09)
[2018-08-05] MEDS ORDERED: ROXICODONE 55 MG/TAB PO (10:13)
[2018-08-05] MEDS ORDERED: SENNA-S 50 MG-81 TAB PO (10:16)
[2018-08-05] MEDS ORDERED: BETAPACE 80MG80 MG PO (10:16)
[2018-08-05] MEDS ORDERED: CEPHALEXIN500 M1 PO (10:19)
[2018-08-05 10:45] VITALS: BP 131/63; PULSE 75
--- NOTE | 2018-08-05 11:03 | NUR ---
Discharge instructions given to pt.Pt verbalizes understanding.
--- NOTE | 2018-08-05 11:17 | NUR ---
Pt escorted out via wheelchair by this nurse.
--- NOTE | 2018-08-05 16:31 | NUR ---
1000-labeling associate staff enter the room introduced to the patient and educated about loop recorder and procedure to insert it, Graciela has no questions at this time. [employer] is present, consent is verified, signed and on the chart. 1009-Left anterior chest is prepped and draped in sterile technique, draped. 1014-Dr Tian arrives and visits with patient at the bedside, time out performed, dons sterile attire gives marcaine 20cc into area of insertion. 1016-incision made, loop device inserted, presure held at the site for 3 minutes then steri strips applied in X pattern over incision. 1023-Sterile dressing applied using sterile 4x4 held in place using 2 inch wide papertape.Drapes removed and [employer] Rep programs the device, dressing remains clean dry and intact, vitals monitored through the procedure, Graciela remains alert and oriented throughout, verbalizes understanding. 1030-optical laboratory technician staff out of the room
== END 2018-08-05 11:17 | disposition home or self-care (01) ==
LOC: COL.CAR 09:04
DX: I48.0 Paroxysmal atrial fibrillation (principal); I25.10 Atherosclerotic heart disease of native coronary artery without angina pectoris; J44.9 Chronic obstructive pulmonary disease, unspecified; I10 Essential (primary) hypertension; E78.5 Hyperlipidemia, unspecified

== ENCOUNTER 2020-08-29 10:55 | Day surgery (SDC) | payer MEDICARE, BC, OTHER ==
[~2020-08-29] VITALS: Ht 154.9 cm; Wt 88.6 kg
[2020-08-29] VITALS (8 sets, daily range): BP systolic 119–159; BP diastolic 50–77; PULSE 59–73; TEMP 97.6
[~2020-08-29 10:55] MED LIST changes: +CEPHALEXIN500 M1 PO; +FLONASEALLERGY NS; +SENNA-S 50 MG-81 TAB PO
[2020-08-29] MEDS ORDERED: CEPHALEXIN500 M1 PO (13:59)
--- NOTE | 2020-08-29 15:50 | NUR ---
DC instructions reviewed with pt and , both express understanding. Pt steady on feet in room. Bandage remains clean, dry and intact. IV DC'd with catheter intact. Pt assisted out by wheelchair to 's car.
== END 2020-08-29 15:50 | disposition home or self-care (01) ==
LOC: COL.CAR 10:55
DX: I48.0 Paroxysmal atrial fibrillation (principal); E11.9 Type 2 diabetes mellitus without complications; E78.5 Hyperlipidemia, unspecified; I10 Essential (primary) hypertension; I25.10 Atherosclerotic heart disease of native coronary artery without angina pectoris; Q25.1 Coarctation of aorta; E78.2 Mixed hyperlipidemia; G95.19 Other vascular myelopathies; Z79.4 Long term (current) use of insulin; Z79.890 Hormone replacement therapy; Z79.899 Other long term (current) drug therapy; Z95.818 Presence of other cardiac implants and grafts; Z79.01 Long term (current) use of anticoagulants
CPT/HCPCS: C1764; J0690; J2250; J3010; J7050

== ENCOUNTER → 2023-02-06 | Outpatient (CLI) | payer MEDICARE, BC, OTHER ==
[~2023-02-06] MED LIST changes: +ASPERCREME1 EACH TP; +BIAXIN 500MG T500 MG PO; +COLESTID 1GM1 G PO; +DESYREL 100MG100 MG PO; +FLEXERIL 1010 MG/TAB PO; +IMODIUM 2MG CAPS2 MG PO; +K-DUR20 MEQ PO; +LANTUS SOLOS100 U/ML SQ; +LANTUS100 U/ML SQ; +LASIX 40MG TABL40 MG PO; +LIPITOR 10MG10 MG PO; +MAG-OX 400400 MG/TAB PO; +NORVASC 5MG5 MG/TAB PO; +OMEGA-3 FISH1000 MG PO; +OMNICEF 300MG300 MG PO; +OXYGEN NASAL.CANN; +OYSTER SHELL CA1 T22 PO; +PREDNISONE20 MG PO; +THEO-DUR 3300 MG/TAB PO; +TYLENOL 500MG500 MG PO; +ULTRAM 50MG TAB50 MG PO; +VITAMIN E 400 U4001 PO; +ZOCOR 20MG20 MG PO; +ZOCOR 40MG40 MG PO; +ZOFRAN 4MG T4 MG/TAB PO; +ZYRTEC 10MG10 MG PO
== END ==
LOC: MHCPAIN 14:17
DX: M47.817 Spondylosis without myelopathy or radiculopathy, lumbosacral region (principal); E11.9 Type 2 diabetes mellitus without complications; Z79.4 Long term (current) use of insulin; I10 Essential (primary) hypertension
CPT/HCPCS: G0463

== ENCOUNTER 2023-04-26 07:14 | Day surgery (SDC) | payer MEDICARE, BC, OTHER ==
[~2023-04-26] VITALS: Ht 154.9 cm; Wt 69.6 kg
[~2023-04-26 07:14] MED LIST changes: +LR 1,000 ML IV SCH; +Ondansetron 4 MG/2 ML VIAL IV PRN
[2023-04-26 07:45] VITALS: BP 156/67; PULSE 66; TEMP 98.8
[2023-04-26] MEDS ORDERED: FOSAMAX 70MG TA70 MG PO (08:19)
[2023-04-26] MEDS ORDERED: CALCIUM 600600 MG PO (08:21)
[2023-04-26] MEDS ORDERED: MASON NATURAL2000 IU PO (08:22)
[2023-04-26] MEDS ORDERED: Lidocaine PF 2% (20 MG/ML) 5 ML VIAL ONE (08:22)
[2023-04-26] MEDS ORDERED: BASAGLAR K100 UNIT/1 SQ (08:23)
[2023-04-26] MEDS ORDERED: BENTYL 10MG10 MG/CAP PO (08:25)
[2023-04-26 09:05] VITALS: BP 150/67; PULSE 71; TEMP 97.7
[2023-04-26 09:20] VITALS: BP 168/89; PULSE 71
--- NOTE | 2023-04-26 10:38 | NUR ---
0905-PATIENT ARRIVED VIA CART TO [facility]. VITAL SIGNS TAKEN, VSS. REPORT OBTAINED FROM SONY BUENO. PATIENT ALERT AND ORIENTED, DENIES PAIN OR NAUSEA. PO INTAKE PROVIDED. 0920-PATIENT TOLERATING PO INTAKE WITHOUT COMPLAINT. VSS 0935-DR. WOODARD AT BEDSIDE, PROCEDURE EXPLAINED. IV CATHETER DISCONTINUED, CATHETER TIP INTACT. PRESSURE HELD AND BANDAGE APPLIED. PATIENT ASSISTED WITH CHANGING INTO PERSONAL CLOTHES. PATIENT SITTING IN CHAIR AND AWAITING RIDE 1034-PATIENT DISCHARGED HOME VIA WHEELCHAIR, ACCOMPANIED BY [facility]. ALL BELONGINGS AND D/C PAPERWORK SENT WITH PT.
== END 2023-04-26 10:34 | disposition home or self-care (01) ==
LOC: SDCO 07:14
DX: D12.2 Benign neoplasm of ascending colon (principal); R19.7 Diarrhea, unspecified; I10 Essential (primary) hypertension; J44.9 Chronic obstructive pulmonary disease, unspecified; Z99.81 Dependence on supplemental oxygen; Z87.19 Personal history of other diseases of the digestive system
CPT/HCPCS: J2704; J7120